=== PATIENT | female | born 1985 | race Caucasian/White ===

== ENCOUNTER 2017-02-21 03:35 | Emergency (ER) | payer MEDICAID ==
[2017-02-21 04:56] LABS: microscopic required? NO
[2017-02-21 05:00] LABS: BASOPHIL % 0.2 % (0-2); PLATELET COUNT 237 x10^3mcL (130-400)
[2017-02-21 05:03] LABS: CALCIUM 8.1 mg/dL (8.5-10.1); CARBON DIOXIDE 27.4 mmol/L (21-32); CHLORIDE SERUM 103 mmol/L (98-107); CREATININE SERUM 0.4 mg/dL (0.6-1.0); GFR1 > 60 mL/min; GLUCOSE SERUM 75 mg/dL (74-106); POTASSIUM SERUM 3.8 mmol/L (3.5-5.1); SODIUM SERUM 137 mmol/L (136-145)
[2017-02-21 05:05] LABS: RED CELL DISTRIBUTION WIDTH 15.2 % (11.5-14.5)
[2017-02-21 05:09] LABS: ALKALINE PHOSPHATASE 65 U/L (46-116); ALT/SGPT 38 U/L (14-59); AST/SGOT 43 U/L (15-37); BILIRUBIN TOTAL 0.3 mg/dL (0.20-1.00); TOTAL PROTEIN, SERUM 6.3 g/dL (6.4-8.2)
[2017-02-21 05:11] LABS: ALBUMIN 2.4 g/dL (3.4-5.0)
[2017-02-21 05:14] LABS: UA SPECIFIC GRAVITY >=1.030 (1.005-1.035); urine erythrocyte NEGATIVE (NEGATIVE)
[2017-02-21 05:26] LABS: AMPHETAMINE QUAL UR POSITIVE (NEG <=1000)
[2017-02-21 06:22] VITALS: BP 118/67
== END 2017-02-21 06:22 | disposition home or self-care (01) ==
LOC: ED 03:35
PROVIDERS: Emergency Medicine
DX: O26.892 Other specified pregnancy related conditions, second trimester (principal); F15.10 Other stimulant abuse, uncomplicated
CPT/HCPCS: 36415; G0480

== ENCOUNTER 2017-11-20 00:20 | Emergency (ER) | payer OTHER ==
[~2017-11-20] VITALS: Ht 154.9 cm; Wt 90.7 kg
[2017-11-20 00:52] VITALS: Ht 154.9 cm; Wt 90.7 kg
[2017-11-20 01:14] VITALS: BP 122/74
== END 2017-11-20 01:14 | disposition home or self-care (01) ==
LOC: ED 00:20
DX: K40.90 Unilateral inguinal hernia, without obstruction or gangrene, not specified as recurrent (principal); J45.909 Unspecified asthma, uncomplicated

== ENCOUNTER 2019-12-22 13:42 | Emergency (ER) | payer OTHER ==
[~2019-12-22] VITALS: Ht 152.4 cm; Wt 96.6 kg
[2019-12-22 13:47] VITALS: Ht 152.4 cm; Wt 96.6 kg
[2019-12-22 15:12] VITALS: BP 106/78
== END 2019-12-22 15:00 | disposition home or self-care (01) ==
LOC: ED 13:42
DX: K64.9 Unspecified hemorrhoids (principal)